=== PATIENT | female | born 1970 | race Two or more races ===

== ENCOUNTER 2016-06-21 | Emergency (ER) | payer MEDICAID, OTHER ==
[~2016-06-21] VITALS: Ht 154.9 cm; Wt 65.3 kg
[2016-06-21 00:41] LABS: Basophils # (auto) 0.1 uL; Basophils % (auto) 1.2 % (0.0-2.0); DEFINITIVE VIEW TRANSMISSION; Eosinophils # (auto) 0.3 uL; Eosinophils % (auto) 4.3 % (0.0-7.0); Hematocrit 35.6 % (36.0-46.0); Hemoglobin 11.2 g/dL (12.2-16.2); Lymphocytes # (auto) 2.3 uL; Lymphocytes % (auto) 33.3 % (10.0-50.0); Mean Corpuscular Hemoglobin 22.3 pg (28.0-32.0); Mean Corpuscular Hgb Conc. 31.5 g/dL (32.0-36.0); Mean Corpuscular Volume 70.7 fL (80.0-100.0); Mean Platelet Volume 8.2 fL (7.4-10.4); Monocytes # (auto) 0.5 uL; Monocytes % (auto) 6.9 % (0.0-12.0); Neutrophils # (auto) 3.7 uL; Neutrophils % (auto) 54.3 % (37.0-80.0); Platelet Count (auto) 466 10^3/uL (140-450); Red Cell Distribution Width 16.9 % (11.6-16.0); White Blood Cell 6.9 10^3/uL (4.4-10.8)
[2016-06-21 00:47] LABS: Anion Gap 10 (5-15); Blood Urea Nitrogen 16 mg/dL (7-18); Calcium 8.9 mg/dL (8.5-10.1); Carbon Dioxide 25 mmol/L (21-32); Chloride 105 mmol/L (98-107); GFR African American 100 mL/min; GFR Non-African American 83 mL/min; Glucose 112 mg/dL (74-106); Potassium 3.9 mmol/L (3.5-5.1); Sodium 140 mmol/L (136-145)
[2016-06-21 00:56] LABS: Alkaline Phosphatase 83 U/L (45-117); Aspartate Aminotransferase 12 U/L (15-37); Bilirubin, Total 0.3 mg/dL (0.2-1.0)
[2016-06-21] MEDS ORDERED: LORazepam 0.5 MG TAB PO ONE (03:45)
[2016-06-21] MEDS ORDERED: HYDROcodone-ACET 5/325MG TAB PO ONE (03:45)
[2016-06-21 05:10] VITALS: BP 105/72
[2016-06-21 05:17] LABS: Urine RBC None Seen /hpf (0 - 4)
[2016-06-21 05:32] LABS: Urine Bilirubin Negative (Negative); Urine Blood Negative /uL (Negative); Urine Color Yellow (Yellow); Urine Glucose Normal (Normal); Urine Ketone Negative (Negative); Urine Nitrite Negative (Negative); Urine Squamous Epithelial Cell FEW /hpf (<5); Urine Urobilinogen Normal (Negative)
== END 2016-06-21 05:11 | disposition home or self-care (01) ==
LOC: ER 00:05
DX: R07.89 Other chest pain (principal); F41.9 Anxiety disorder, unspecified; F43.20 Adjustment disorder, unspecified; Z98.51 Tubal ligation status
CPT/HCPCS: 36415; 71010; 80053; 81001; 81025; 82962; 84484; 85025; 93005